=== PATIENT | female | born 1990 | race Caucasian/White ===

== ENCOUNTER 2016-10-07 12:40 | Emergency (ER) | payer MEDICAID ==
[~2016-10-07] VITALS: Ht 172.7 cm; Wt 120.0 kg
[~2016-10-07 12:40] MED LIST: ADIPEX-P37.5 MG PO; AMOXICILLIN 50500 MG PO; BACTRIM DS 8001 TAB PO; CEFTIN 250250 MG/TAB PO; DIFLUCAN PO; MACROBID100 MG PO; MOTRIN 600600 MG/TAB PO; NAPROSYN500 MG PO; NO HOME MEDICATIONS; NORCO 325 MG-51 TAB PO; NORCO 325 MG-7.1 TAB PO; PERCOCET 325 MG1 TA2 PO; PRENATAL 191 CTB PO; REGLAN 10MG10 MG/TAB PO; ZANTAC 150MG T150 MG PO; ZOLOFT 50MG50 MG PO
[2016-10-07 12:45] VITALS: BP 131/79; TEMP 97.4
[2016-10-07 15:27] VITALS: PULSE 70
== END 2016-10-07 15:28 | disposition home or self-care (01) ==
LOC: COL.ER 12:40
DX: G43.909 Migraine, unspecified, not intractable, without status migrainosus (principal)
CPT/HCPCS: J1200; J1885; J2765; J7030

== ENCOUNTER 2017-02-28 12:38 | Emergency (ER) | payer SELFPAY ==
[~2017-02-28] VITALS: Ht 172.7 cm; Wt 120.5 kg
[2017-02-28 12:40] VITALS: BP 122/66; PULSE 68; TEMP 98.4
[2017-02-28] MEDS ORDERED: ZOLOFT 100MG100 MG PO (12:42)
[2017-02-28 13:39] LABS: BASO % 0.3 % (0.0-2.0); EOS # 0.5 (0.0-0.7); EOS % 6.5 % (0-4.0); GRAN # 4.4 (1.4-6.5); GRAN % 59.1 % (42.2-75.2); LYMPH # 2.1 (1.2-3.4); LYMPH % 27.5 % (20.0-51.0); MEAN CELL VOLUME 81 fl (80.0-100.0); MEAN CORPUSCULAR HGB CONC 34 g/dl (33.0-37.0); MEAN PLATELET VOLUME 11.8 fl (7.4-10.4); MONO # 0.5 (0.1-0.6); MONO % 6.5 % (1.7-9.3); PLATELET COUNT 241 K/mm3 (130-400); RED BLOOD COUNT 4.23 M/mm3 (4.10-5.30); REDCELL DISTRIBUTION WIDTH-CV 13.8 % (11.5-14.5); WHITE BLOOD COUNT 7.5 K/mm3 (4.8-10.8)
[2017-02-28 13:42] LABS: HEMATOCRIT 34.2 % (37.0-47.0); HEMOGLOBIN 11.5 g/dl (12.5-16.0); MEAN CORPUSCULAR HEMOGLOBIN 27 pg (27.0-31.0)
[2017-02-28 13:49] LABS: ADJUSTED CALCIUM 8.9 mg/dL (8.4-10.2); ALBUMIN 3.9 gm/dL (3.5-5.0); BILIRUBIN,TOTAL 0.6 mg/dL (0.0-1.0); CALCIUM 8.8 mg/dL (8.4-10.2); CREATININE, serum 0.77 mg/dL (0.52-1.25); POTASSIUM 3.8 mmol/L (3.4-5.0)
[2017-02-28 14:53] LABS: PH 5 (5-8); SQUAMOUS EPITHELIAL 0-2 /hpf; URINE APPEARANCE Hazy; URINE BACTERIA Many /hpf; URINE BILIRUBIN Negative (NEGATIVE); URINE BLOOD 2+ (NEGATIVE); URINE COLOR Yellow; URINE GLUCOSE Negative (NEGATIVE); URINE KETONE Negative (NEGATIVE); URINE UROBILINOGEN Negative (NEGATIVE)
[2017-02-28 14:54] LABS: URINE WBC >50 /hpf
[2017-02-28] MEDS ORDERED: MACROBID 1100 MG/CAP PO (16:03)
[2017-02-28 16:25] LABS: CHLAMYDIA/TRACH by PCR Female NOT DETECTED; NEISSERIA GON by PCR Female NOT DETECTED
== END 2017-02-28 16:11 | disposition home or self-care (01) ==
LOC: COL.ER 12:38
PROVIDERS: Nurse Practitioner
DX: N39.0 Urinary tract infection, site not specified (principal); N92.0 Excessive and frequent menstruation with regular cycle
CPT/HCPCS: J7030

== ENCOUNTER 2017-03-02 12:07 | Emergency (ER) | payer SELFPAY ==
[~2017-03-02] VITALS: Ht 172.7 cm; Wt 120.5 kg
[~2017-03-02 12:07] MED LIST changes: +MACROBID 1100 MG/CAP PO; +ZOLOFT 100MG100 MG PO
[2017-03-02 12:14] VITALS: BP 124/77; TEMP 98.6
[2017-03-02] MEDS ORDERED: FLEXERIL 1010 MG/TAB PO (14:27)
[2017-03-02 14:33] VITALS: PULSE 78
== END 2017-03-02 14:34 | disposition home or self-care (01) ==
LOC: COL.ER 12:07
DX: M54.31 Sciatica, right side (principal)
CPT/HCPCS: J1885

== ENCOUNTER 2017-07-17 20:27 | Emergency (ER) | payer SELFPAY ==
[~2017-07-17] VITALS: Ht 172.7 cm; Wt 115.0 kg
[~2017-07-17 20:27] MED LIST changes: +FLEXERIL 1010 MG/TAB PO
[2017-07-17 20:33] VITALS: BP 133/77; PULSE 89; TEMP 98.5
== END 2017-07-17 22:02 | disposition home or self-care (01) ==
LOC: COL.ER 20:27
DX: S61.201A Unspecified open wound of left index finger without damage to nail, initial encounter (principal); W26.8XXA Contact with other sharp object(s), not elsewhere classified, initial encounter

== ENCOUNTER 2018-02-17 12:11 | Emergency (ER) | payer SELFPAY ==
[~2018-02-17] VITALS: Ht 172.7 cm; Wt 113.6 kg
[~2018-02-17 12:11] MED LIST changes: +CIPRO 500MG TA500 MG PO
[2018-02-17 12:13] VITALS: TEMP 98
[2018-02-17] MEDS ORDERED: AMOXICILLIN 8751 TAB PO (12:55)
[2018-02-17] MEDS ORDERED: FLONASEALLERGY NS (12:55)
[2018-02-17 13:03] VITALS: BP 137/88; PULSE 81
== END 2018-02-17 13:00 | disposition home or self-care (01) ==
LOC: COL.ER 12:11
DX: H69.91 Unspecified Eustachian tube disorder, right ear (principal); J32.0 Chronic maxillary sinusitis; F32.9 Major depressive disorder, single episode, unspecified

== ENCOUNTER 2018-03-17 08:56 | Emergency (ER) | payer SELFPAY ==
[~2018-03-17] VITALS: Ht 172.7 cm; Wt 114.5 kg
[~2018-03-17 08:56] MED LIST changes: +AMOXICILLIN 8751 TAB PO; +FLONASEALLERGY NS
[2018-03-17 09:00] VITALS: TEMP 98.5
[2018-03-17] MEDS ORDERED: ZOVIRAX800 MG PO (09:42)
[2018-03-17 09:48] VITALS: BP 147/76; PULSE 80
== END 2018-03-17 09:50 | disposition home or self-care (01) ==
LOC: COL.ER 08:56
DX: B02.8 Zoster with other complications (principal); F17.210 Nicotine dependence, cigarettes, uncomplicated; Z98.51 Tubal ligation status

== ENCOUNTER 2018-05-26 13:46 | Emergency (ER) | payer SELFPAY ==
[~2018-05-26] VITALS: Ht 172.7 cm; Wt 109.1 kg
[~2018-05-26 13:46] MED LIST changes: +ZOVIRAX800 MG PO
[2018-05-26 14:08] VITALS: BP 123/72; PULSE 61; TEMP 99.1
== END 2018-05-26 16:46 | disposition home or self-care (01) ==
LOC: COL.ER 13:46
DX: S86.912A Strain of unspecified muscle(s) and tendon(s) at lower leg level, left leg, initial encounter (principal); S39.012A Strain of muscle, fascia and tendon of lower back, initial encounter; Z98.51 Tubal ligation status; Z98.890 Other specified postprocedural states; W01.0XXA Fall on same level from slipping, tripping and stumbling without subsequent striking against object, initial encounter; Y92.009 Unspecified place in unspecified non-institutional (private) residence as the place of occurrence of the external cause
CPT/HCPCS: L1846

== ENCOUNTER 2018-07-14 12:28 | Emergency (ER) | payer SELFPAY ==
[~2018-07-14] VITALS: Ht 172.7 cm; Wt 98.6 kg
[2018-07-14 12:36] VITALS: TEMP 98.2
[2018-07-14] MEDS ORDERED: TOPAMAX50 MG PO ×2 (12:42)
[2018-07-14] MEDS ORDERED: ZOLOFT 100MG100 MG PO (12:42)
[2018-07-14] MEDS ORDERED: DESYREL 50MG50 MG PO (12:43)
[2018-07-14 13:18] LABS: COLLECTION METHOD CLEAN CATCH
[2018-07-14 13:35] LABS: MUCOUS Present /lpf; PH 6 (5-8); SQUAMOUS EPITHELIAL None Seen /hpf; URINE APPEARANCE Clear; URINE BACTERIA Occasional /hpf; URINE BILIRUBIN Negative (NEGATIVE); URINE BLOOD Negative (NEGATIVE); URINE COLOR Yellow; URINE GLUCOSE Negative (NEGATIVE); URINE KETONE Negative (NEGATIVE); URINE LEUKOCYTE ESTERASE Negative (NEGATIVE); URINE NITRATE Negative (NEGATIVE); URINE PROTEIN(semi-quant) Negative (NEGATIVE); URINE RBC 0-2 /hpf; URINE UROBILINOGEN >=4.0 mg/dL (NEGATIVE)
[2018-07-14] MEDS ORDERED: FLAGYL500 MG PO (14:04)
[2018-07-14 14:45] VITALS: BP 111/71; PULSE 70
[2018-07-15] MEDS ORDERED: BACTRIM DS 8001 TAB PO (18:33)
== END 2018-07-14 14:45 | disposition home or self-care (01) ==
LOC: COL.ER 12:28
PROVIDERS: Nurse Practitioner
DX: N76.0 Acute vaginitis (principal); F31.9 Bipolar disorder, unspecified; F17.210 Nicotine dependence, cigarettes, uncomplicated; Z98.51 Tubal ligation status
CPT/HCPCS: J0696

== ENCOUNTER 2018-12-17 12:20 | Emergency (ER) | payer SELFPAY ==
[~2018-12-17] VITALS: Ht 172.7 cm; Wt 90.9 kg
[~2018-12-17 12:20] MED LIST changes: +DESYREL 50MG50 MG PO; +FLAGYL500 MG PO; +TOPAMAX50 MG PO
[2018-12-17 12:43] VITALS: BP 124/60; PULSE 71; TEMP 97.9
== END 2018-12-17 13:00 | disposition home or self-care (01) ==
LOC: COL.ER 12:20
DX: Z20.2 Contact with and (suspected) exposure to infections with a predominantly sexual mode of transmission (principal); F17.210 Nicotine dependence, cigarettes, uncomplicated; Z98.51 Tubal ligation status
CPT/HCPCS: J0696

== ENCOUNTER 2019-06-22 17:12 | Emergency (ER) | payer SELFPAY ==
[~2019-06-22] VITALS: Ht 172.7 cm; Wt 95.5 kg
[2019-06-22 17:35] VITALS: BP 141/72; TEMP 97.3
[2019-06-22 18:14] LABS: COLLECTION METHOD CLEAN CATCH
[2019-06-22 18:21] LABS: MUCOUS Present /lpf; PH 6 (5-8); SQUAMOUS EPITHELIAL 0-2 /hpf; URINE APPEARANCE Hazy; URINE BACTERIA Rare /hpf; URINE BILIRUBIN Negative (NEGATIVE); URINE BLOOD Negative (NEGATIVE); URINE COLOR Yellow; URINE GLUCOSE Negative (NEGATIVE); URINE KETONE Negative (NEGATIVE); URINE LEUKOCYTE ESTERASE Trace (NEGATIVE); URINE NITRATE Positive (NEGATIVE); URINE PROTEIN(semi-quant) Negative (NEGATIVE); URINE RBC 0-2 /hpf; URINE UROBILINOGEN Negative (NEGATIVE)
[2019-06-22] MEDS ORDERED: LIORESAL 1010 MG/TAB PO (18:38)
[2019-06-22] MEDS ORDERED: NORCO 325 MG-51 TAB PO (18:42)
[2019-06-22] MEDS ORDERED: MEDROL 4MG DOSPA4 MG PO (18:42)
[2019-06-22] MEDS ORDERED: CEFTIN500 MG PO (18:46)
[2019-06-22] MEDS ORDERED: PERCOCET 325 MG1 TA2 PO (19:00)
[2019-06-22 19:06] VITALS: PULSE 85
== END 2019-06-22 19:06 | disposition home or self-care (01) ==
LOC: COL.ER 17:12
PROVIDERS: Emergency Medicine
DX: N39.0 Urinary tract infection, site not specified (principal); M54.16 Radiculopathy, lumbar region; F17.210 Nicotine dependence, cigarettes, uncomplicated; Z98.51 Tubal ligation status
CPT/HCPCS: J3010; J7512